=== PATIENT | male | born 1980 | race Two or more races ===

== ENCOUNTER → 2021-12-17 | Emergency (ER) | payer OTHER ==
[~2021-12-17] VITALS: Ht 172.7 cm; Wt 87.1 kg
[~2021-12-17] MED LIST: TENORMIN50 M1 PO
== END | disposition home or self-care (01) ==
LOC: ER 12:26
DX: L03.115 Cellulitis of right lower limb (principal); B95.61 Methicillin susceptible Staphylococcus aureus infection as the cause of diseases classified elsewhere

== ENCOUNTER 2022-02-23 17:27 | Emergency (ER) | payer OTHER ==
[~2022-02-23] VITALS: Ht 175.3 cm; Wt 84.8 kg
[2022-02-23] MEDS ORDERED: GRALISE600 MG (18:22)
[2022-02-23] MEDS ORDERED: ETODOLAC 500 MG (18:23)
== END 2022-02-23 20:26 | disposition home or self-care (01) ==
LOC: ER 17:27
DX: M51.06 Intervertebral disc disorders with myelopathy, lumbar region (principal)